=== PATIENT | female | born 1970 ===

== ENCOUNTER 2020-05-04 14:56 | Emergency (ER) | payer MEDICAID, OTHER ==
[~2020-05-04] VITALS: Ht 172.7 cm; Wt 91.4 kg
[~2020-05-04 14:56] MED LIST: ACID1TAB7 PO; AZIT500T10 PO; FERR324T5 PO; HYDR-3248 PO; IBUP-1221 PO; LOPE2CAP PO; LURA40TA PO; MULT-658 PO; NAPR250T6 PO; TRAM50TA2 PO; VENL150C PO
--- NOTE | 2020-05-04 15:16 | NUR ---
PT BROUGHT BACK FROM TRIAGE WITH C/O ABDOMINAL PAIN, NAUSEA AND VOMITING X2 DAYS. PT COMPLAINS OF 8/10 PAIN. PT DENIES ANY RECENT FEVER, CHILL OR SOB. PT DENIES PAINFUL URINATION OR BLOOD IN HER URINE OR STOOL.
[2020-05-04] MEDS ORDERED: FAMOTIDINE 20 MG/2 ML IVPush ONE ×2 (15:30→17:00)
[2020-05-04] MEDS ORDERED: ONDANSETRON 2MG/ML, 2ML IVPush ONE (15:30)
[2020-05-04] MEDS ORDERED: SODIUM CHLORIDE 0.9% 1,000ML IVBOLUS ONE (15:30)
[2020-05-04] MEDS ORDERED: MORPHINE SULFATE 4 MG/ML, 1ML IVPush PRN (15:30)
[2020-05-04] MEDS ORDERED: ONDANSETRON 2MG/ML, 2ML ONE (15:39)
[2020-05-04] MEDS ORDERED: FAMOTIDINE 20 MG/2 ML ONE ×2 (15:40→16:56)
[2020-05-04] MEDS ORDERED: MORPHINE SULFATE 4 MG/ML, 1ML ONE (15:40)
[2020-05-04 15:47] VITALS: BP 122/67
[2020-05-04 15:47] LABS: BASOPHILS % (AUTO) 1 % (0-1); EOSINOPHILS % (AUTO) 1 % (1-7); LYMPHOCYTES % (AUTO) 30 % (22-44); MEAN CORPUSCULAR HEMOGLOBIN 28.6 pg (27.0-34.8); MEAN CORPUSCULAR HGB CONC 33.6 g/dL (32.4-35.8); MEAN PLATELET VOLUME 8.7 fL (7.4-10.4); MONOCYTES % (AUTO) 7 % (2-9); NEUTROPHILS % (AUTO) 61 % (42-75); PLATELET COUNT 266 x10^3/uL (130-400); RED BLOOD COUNT 4.79 x10^6/uL (3.82-5.3); RED CELL DISTRIBUTION WIDTH 14.6 % (9.6-15.2)
[2020-05-04 15:53] LABS: MD NO
[2020-05-04 16:00] LABS: ALANINE AMINOTRANSFERASE 18 U/L (12-78); ALBUMIN 3.7 g/dL (3.4-5.0); ANION GAP 5 mmol/L (5-15); CALCIUM 8.2 mg/dL (8.5-10.1); CHLORIDE 109 mmol/L (98-107); CREATININE 1.07 mg/dL (0.55-1.02)
[2020-05-04 16:03] LABS: MICROSCOPIC AUTO
[2020-05-04 16:05] LABS: ALKALINE PHOSPHATASE 83 U/L (45-117); BILIRUBIN,TOTAL 0.7 mg/dL (0.2-1.0); TOTAL PROTEIN 7.6 g/dL (6.4-8.2)
[2020-05-04] MEDS ORDERED: HYDROmorphone 1 MG/ML, 1ML INJ ONE (16:23)
--- NOTE | 2020-05-04 16:26 | NUR ---
Dashawn MCMAHON at bedside for evaluation
[2020-05-04] MEDS ORDERED: HYDROmorphone 2 MG/ML, 1ML IVPush PRN (16:30)
--- NOTE | 2020-05-04 16:35 | NUR ---
PT TO CT
[2020-05-04] MEDS ORDERED: OMNIPAQUE 350 MG/ML, 100ML BOTTLE ONE (16:55)
[2020-05-04] MEDS ORDERED: DIPHENHYDRAMINE 50 MG/ML, 1ML ONE (16:56)
[2020-05-04] MEDS ORDERED: methylPREDNISolone SOD SUCC 125 MG/2 ML IVPush ONE (17:00)
[2020-05-04] MEDS ORDERED: DIPHENHYDRAMINE 50 MG/ML, 1ML IVPush ONE (17:00)
--- NOTE | 2020-05-04 17:12 | NUR ---
PT CAME BACK FROM CT AND WAS COMPLAINING OF SEVERE ITCHING ALL OVER BODY. PT RECEIVED CONTRAST, DID NOTHAVE ANY PREVIOUS REACTIONS TO CONTRAST. ORLY DEUTSCH NOTIFIED. MEDICATIONS GIVEN PER ORDER.
[2020-05-04] MEDS ORDERED: MAALOX/HYOSCYAMINE/LIDOCAINE 45 ML BTL PO ONE (17:30)
[2020-05-04] MEDS ORDERED: MAALOX/HYOSCYAMINE/LIDOCAINE 45 ML BTL ONE (17:48)
--- NOTE | 2020-05-04 18:01 | NUR ---
PT STATES THAT HER ITCHING HAS SUBSIDED AFTER MEDICATIONS.
--- NOTE | 2020-05-04 18:23 | NUR ---
Dashawn MCMAHON AT BEDSIDE TO DISCUSS POC
--- NOTE | 2020-05-04 18:38 | NUR ---
DISCHARGE INSTRUCTIONS REVIEWED WITH PT. ALL QUESTIONS ANSWERED AT THIS TIME
== END 2020-05-04 18:46 | disposition home or self-care (01) ==
LOC: ED 17:06
DX: K29.00 Acute gastritis without bleeding (principal); R10.13 Epigastric pain; R11.2 Nausea with vomiting, unspecified
CPT/HCPCS: 36415; 74177; 80053; 81001; 83690; 84703; 85025; 87086; 96361; 96374; 96375; 96376; 99285; J1170; J2270; J2405; J7030; Q9967

== ENCOUNTER 2020-05-06 12:22 | Emergency (ER) | payer OTHER ==
[~2020-05-06] VITALS: Ht 172.7 cm; Wt 91.0 kg
[2020-05-06] MEDS ORDERED: SODIUM CHLORIDE 0.9% 1,000ML IVBOLUS ONE (13:30)
[2020-05-06] MEDS ORDERED: SODIUM CHLORIDE 0.9% 1,000 ML IV ONE (13:30)
[2020-05-06] MEDS ORDERED: MORPHINE SULFATE 4 MG/ML, 1ML IVPush PRN (13:30)
[2020-05-06] MEDS ORDERED: ONDANSETRON 2MG/ML, 2ML IVPush ONE (13:30)
[2020-05-06] MEDS ORDERED: SODIUM CHLORIDE FLUSH 10ML SYR IVF ONE (13:30)
[2020-05-06] MEDS ORDERED: ONDANSETRON 2MG/ML, 2ML ONE (13:54)
[2020-05-06] MEDS ORDERED: MORPHINE SULFATE 4 MG/ML, 1ML ONE (13:54)
[2020-05-06 14:09] LABS: BASOPHILS % (AUTO) 1 % (0-1); EOSINOPHILS % (AUTO) 0 % (1-7); LYMPHOCYTES % (AUTO) 30 % (22-44); MEAN CORPUSCULAR HEMOGLOBIN 28.4 pg (27.0-34.8); MEAN CORPUSCULAR HGB CONC 32.9 g/dL (32.4-35.8); MEAN PLATELET VOLUME 8.9 fL (7.4-10.4); MONOCYTES % (AUTO) 6 % (2-9); NEUTROPHILS % (AUTO) 63 % (42-75); PLATELET COUNT 283 x10^3/uL (130-400); RED BLOOD COUNT 5.03 x10^6/uL (3.82-5.3); RED CELL DISTRIBUTION WIDTH 14.9 % (9.6-15.2)
[2020-05-06 14:13] LABS: MD NO
[2020-05-06 14:19] LABS: ALBUMIN 3.9 g/dL (3.4-5.0); ANION GAP 8 mmol/L (5-15); CALCIUM 8.7 mg/dL (8.5-10.1); CHLORIDE 106 mmol/L (98-107)
[2020-05-06 14:23] LABS: ALANINE AMINOTRANSFERASE 19 U/L (12-78); ALKALINE PHOSPHATASE 70 U/L (45-117); BILIRUBIN,TOTAL 0.6 mg/dL (0.2-1.0); CREATININE 0.92 mg/dL (0.55-1.02); TOTAL PROTEIN 8.3 g/dL (6.4-8.2)
[2020-05-06] MEDS ORDERED: MAALOX/HYOSCYAMINE/LIDOCAINE 45 ML BTL ONE (14:40)
[2020-05-06 14:42] LABS: CLOSTRIDIUM DIFFICILE ANTIGEN NEGATIVE; CLOSTRIDIUM DIFFICILE TOXIN NEGATIVE (Negative)
[2020-05-06 14:55] LABS: MICROSCOPIC AUTO
[2020-05-06] MEDS ORDERED: MAALOX/HYOSCYAMINE/LIDOCAINE 45 ML BTL PO ONE (15:00)
[2020-05-06] MEDS ORDERED: KETOROLAC 30 MG/1 ML ONE (15:18)
[2020-05-06] MEDS ORDERED: KETOROLAC 30 MG/1 ML IVPush ONE (15:30)
[2020-05-06] MEDS ORDERED: METOCLOPRAMIDE 5 MG/ML, 2ML ONE (16:24)
[2020-05-06 16:29] VITALS: BP 111/64
[2020-05-06] MEDS ORDERED: METOCLOPRAMIDE 5 MG/ML, 2ML IVPush ONE (16:30)
== END 2020-05-06 16:44 | disposition home or self-care (01) ==
LOC: ED 13:43
DX: K52.9 Noninfective gastroenteritis and colitis, unspecified (principal); R10.13 Epigastric pain; R42 Dizziness and giddiness; F17.200 Nicotine dependence, unspecified, uncomplicated; Z90.49 Acquired absence of other specified parts of digestive tract; Z88.0 Allergy status to penicillin
CPT/HCPCS: 36415; 80053; 81001; 83690; 85025; 87086; 87324; 89055; 96361; 96374; 96375; 99284; J1885; J2270; J2405; J2765; J7030